=== PATIENT | male | born 1950 | race Two or more races ===

== ENCOUNTER 2017-10-18 18:05 | Emergency (ER) | payer OTHER ==
[~2017-10-18] VITALS: Ht 188 cm; Wt 106.6 kg
[~2017-10-18 18:05] MED LIST: ASA81 MG; COZAAR50 MG; DESPEC-DM TABL1 EACH PO; KETO10TA2 PO; LEVAQUIN750 MG PO; ORPH100T PO; TENORMIN50 M1
[2017-10-18] MEDS ORDERED: METFORMIN HCL500 MG (18:48)
== END 2017-10-18 22:28 ==
LOC: ER 18:05
DX: I10 Essential (primary) hypertension (principal); R42 Dizziness and giddiness

== ENCOUNTER 2021-08-13 11:50 | Emergency (ER) | payer OTHER ==
[~2021-08-13] VITALS: Ht 188 cm; Wt 117.9 kg
[~2021-08-13 11:50] MED LIST changes: +METFORMIN HCL500 MG
[2021-08-13] MEDS ORDERED: KETO10TA2 PO (15:29)
== END 2021-08-13 16:07 | disposition home or self-care (01) ==
LOC: ER 11:50
DX: M79.675 Pain in left toe(s) (principal)

== ENCOUNTER 2022-04-01 10:39 | Emergency (ER) | payer OTHER ==
[~2022-04-01] VITALS: Ht 185.4 cm; Wt 120.2 kg
[2022-04-01] MEDS ORDERED: SIMVASTATIN20 MG PO (11:07)
== END 2022-04-01 15:51 ==
LOC: ER 10:39
DX: M79.604 Pain in right leg (principal); E11.9 Type 2 diabetes mellitus without complications; Z79.899 Other long term (current) drug therapy; I10 Essential (primary) hypertension